=== PATIENT | female | born 1985 | race Caucasian/White ===

== ENCOUNTER 2017-03-21 03:10 | Inpatient (IN) | payer MEDICAID, OTHER ==
[~2017-03-21] VITALS: Ht 154.9 cm; Wt 108.0 kg
[2017-03-21] MEDS ORDERED: CARBOPROST TROMETHAMINE 250 MCG/ML AMPUL IM PRN (03:15)
[2017-03-21] MEDS ORDERED: METHYLERGONOVINE MALEATE 0.2 MG/ML IM PRN (03:15)
[2017-03-21] MEDS ORDERED: DEXT 5%/LR + PITOCIN 20UNITS/L 1,000 ML IV SCH ×2 (03:15→09:37)
[2017-03-21] MEDS ORDERED: MISOPROSTOL 100MCG TABLET VG SCH (03:15)
[2017-03-21] MEDS: LACTATED RINGERS 1,000 ML IV SCH ×2 (03:38→04:32)
[2017-03-21] MEDS: TERBUTALINE SULFATE 1MG/ML VIAL SUBCUT PRN ×3 (03:39→05:31)
[2017-03-21 03:56] LABS: BASOPHILS % 0.5 % (0.0-2.0); EOSINOPHILS % 0.6 % (0.0-5.0); HEMATOCRIT. 37.4 % (36.0-48.0); HEMOGLOBIN. 12.4 g/dL (12.0-16.0); LYMPHOCYTES % 28.4 % (20.0-50.0); MEAN CORPUSCULAR VOLUME 78.8 fL (81.0-99.0); MEAN PLATELET VOLUME 7.8 fl (7.4-10.4); MONOCYTES % 5.8 % (2.0-8.0); NEUTROPHILS % 64.7 % (40.0-76.0); PLATELET 259 x1000/uL (130-400); RED BLOOD CELL COUNT 4.75 mill/uL (4.2-5.4); RED CELL DISTRIBUTION WIDTH 14.8 % (11.6-14.6)
[2017-03-21 04:05] LABS: PARTIAL THROMBOPLASTIN TIME 28.7 sec (24.0-34.0); PROTHROMBIN TIME 10.4 sec
[2017-03-21] MEDS: BUTORPHANOL TARTRATE 2 MG/ML VIAL IV PRN ×2 (06:18→11:40)
[2017-03-21] MEDS ORDERED: OXYTOCIN 10 UNITS/ML 1ML ONE (07:05)
[2017-03-21] MEDS ORDERED: MORPHINE SULFATE/PF 1MG/ML 10ML AMP ONE (07:05)
[2017-03-21] MEDS ORDERED: MIDAZOLAM HCL 2 MG/2 ML VIAL ONE ×2 (07:05→09:08)
[2017-03-21] MEDS ORDERED: EPHEDRINE SULFATE 50MG/ML VIAL ONE (07:06)
[2017-03-21] MEDS ORDERED: SODIUM CHLORIDE 0.9% 10ML VIAL ONE ×2 (07:06→08:23)
[2017-03-21] MEDS ORDERED: PHENYLEPHRINE HCL 10 MG/ML 1ML (IV VIAL) IV ONE (07:06)
[2017-03-21] MEDS ORDERED: CLINDAMYCIN PHOSPHATE 900MG/6ML VIAL ONE (07:06)
[2017-03-21] MEDS ORDERED: DEXAMETHASONE 4MG/ML 1ML VIAL ONE (07:06)
[2017-03-21] MEDS ORDERED: ONDANSETRON HCL 4MG/2ML VIAL ONE (07:06)
[2017-03-21 07:33] LABS: CLARITY URINE CLOUDY (CLEAR); COLOR URINE YELLOW (YELLOW); GLUCOSE URINE NEGATIVE (NEGATIVE); KETONES URINE NEGATIVE (NEGATIVE); LEUKOCYTE ESTERASE URINE NEGATIVE (NEGATIVE); NITRITE URINE NEGATIVE (NEGATIVE); OCCULT BLOOD URINE 3+ (NEGATIVE); PH URINE 6.5 (4.5-8.0); PROTEIN URINE TRACE (NEGATIVE); SPECIFIC GRAVITY URINE 1.024 (1.005-1.030); UROBILINOGEN URINE 0.2 E.U./dL (0.2-1.0)
[2017-03-21 07:53] LABS: *AMPHETAMINES SCREEN URINE NEGATIVE (NEGATIVE); *BARBITURATES SCREEN URINE NEGATIVE (NEGATIVE); *BENZODIAZEPINES SCREEN URINE NEGATIVE (NEGATIVE); *COCAINE SCREEN URINE NEGATIVE (NEGATIVE); CANNABINOID URINE SCREEN NEGATIVE (NEGATIVE); METHADONE URINE SCREEN NEGATIVE (NEGATIVE); OPIATES URINE SCREEN NEGATIVE (NEGATIVE); PHENCYCLIDINE URINE SCREEN NEGATIVE (NEGATIVE)
[2017-03-21] MEDS ORDERED: GENTAMICIN 120MG PREMIX 100 ML IV SCH (08:00)
[2017-03-21] MEDS ORDERED: IBUPROFEN 400MG TABLET PO PRN (09:45)
[2017-03-21] MEDS ORDERED: RHO(D) IMMUNE GLOBULIN 300 MCG/SYR IM PRN (09:45)
[2017-03-21] MEDS ORDERED: ONDANSETRON HCL 4MG/2ML VIAL IV PRN ×2 (09:45→10:15)
[2017-03-21] MEDS ORDERED: LANOLIN OINT 0.25 GM TUBE TOP PRN (09:45)
[2017-03-21] MEDS ORDERED: DIPHENHYDRAMINE 25MG CAPSULE PO PRN (09:45)
[2017-03-21] MEDS ORDERED: TETANUS, DIPHTHERIA, PERTUSSIS VAC/PF 0.5ML (>7YR OLD) IM ONE (09:45)
[2017-03-21] MEDS ORDERED: HYDROCODONE/ACETAMINOPHEN 5/325MG TABLET PO PRN (09:45)
[2017-03-21] MEDS ORDERED: BISACODYL 10MG SUPP PR PRN (09:45)
[2017-03-21] MEDS ORDERED: DIPHENHYDRAMINE 50MG/ML VIAL IV PRN (10:15)
[2017-03-21] MEDS ORDERED: NALOXONE HCL 0.4 MG/ML 1ML VIAL IV PRN (10:15)
[2017-03-21] MEDS: KETOROLAC 30MG/ML VIAL IV SCH ×3 (10:32→23:01)
[2017-03-21] MEDS ORDERED: FENTANYL CITRATE/PF 50MCG/ML 2ML VIAL IV PRN (11:00)
[2017-03-21 12:30] VITALS: BP 127/95
[2017-03-21 13:00] VITALS: BP 127/71
[2017-03-21] MEDS ORDERED: LACTATED RINGERS 1,000 ML IV SCH (13:30)
[2017-03-21 13:31] LABS: HEPATITIS B SURFACE ANTIGEN NEGATIVE; RUBELLA IGG 110.8 IU/mL (4.99-10)
[2017-03-21] MEDS ORDERED: PREN-88 PO (15:14)
[2017-03-21 15:43] LABS: HEMATOCRIT. 34.2 % (36.0-48.0); HEMOGLOBIN. 11.3 g/dL (12.0-16.0); MEAN CORPUSCULAR HEMOGLOBIN 25.9 pg (28.0-32.0); MEAN CORPUSCULAR VOLUME 78.5 fL (81.0-99.0); MEAN PLATELET VOLUME 7.8 fl (7.4-10.4); PLATELET 232 x1000/uL (130-400); RED BLOOD CELL COUNT 4.36 mill/uL (4.2-5.4); RED CELL DISTRIBUTION WIDTH 14.8 % (11.6-14.6)
[2017-03-21 19:45] LABS: PLATELET ESTIMATE NORMAL
[2017-03-21 20:00] VITALS: BP 112/70
[2017-03-21] MEDS: DOCUSATE SODIUM 100MG CAPSULE PO SCH (21:00)
[2017-03-22] VITALS: BP 96/58
[2017-03-22 04:00] VITALS: BP 101/66
[2017-03-22] MEDS ORDERED: KETOROLAC 30MG/ML VIAL IV SCH (06:45)
[2017-03-22 07:31] VITALS: BP 97/69
[2017-03-22 07:31] LABS: BASOPHILS % 0.4 % (0.0-2.0); EOSINOPHILS % 0.2 % (0.0-5.0); HEMATOCRIT. 31.6 % (36.0-48.0); HEMOGLOBIN. 10.5 g/dL (12.0-16.0); LYMPHOCYTES % 26.1 % (20.0-50.0); MEAN CORPUSCULAR HEMOGLOBIN 26.2 pg (28.0-32.0); MEAN CORPUSCULAR VOLUME 78.6 fL (81.0-99.0); MEAN PLATELET VOLUME 7.5 fl (7.4-10.4); MONOCYTES % 8.2 % (2.0-8.0); NEUTROPHILS % 65.1 % (40.0-76.0); PLATELET 222 x1000/uL (130-400); RED BLOOD CELL COUNT 4.02 mill/uL (4.2-5.4); RED CELL DISTRIBUTION WIDTH 14.6 % (11.6-14.6)
[2017-03-22] MEDS: MAGNESIUM/ALUMINUM HYDROXIDE/SIMETHICONE 30ML UDC PO SCH ×4 (08:16→22:00)
[2017-03-22] MEDS: PRENATAL VIT/FE FUMARATE/FA TABLET PO SCH (08:16)
[2017-03-22] MEDS: SIMETHICONE 80MG TABLET CHEW PO SCH ×3 (08:16→17:55)
[2017-03-22] MEDS: IBUPROFEN 400MG TABLET PO PRN ×2 (10:57→17:57)
[2017-03-22] MEDS: FERROUS SULFATE 325MG TABLET PO SCH ×2 (12:53→17:55)
[2017-03-22] MEDS: HYDROCODONE/ACETAMINOPHEN 5/325MG TABLET PO PRN ×2 (15:09→22:28)
[2017-03-22 16:02] VITALS: BP 98/59
[2017-03-22 20:00] VITALS: BP 116/79
[2017-03-22] MEDS: DOCUSATE SODIUM 100MG CAPSULE PO SCH (20:53)
[2017-03-23] VITALS: BP 110/75
[2017-03-23 04:00] VITALS: BP 115/70
[2017-03-23] MEDS: IBUPROFEN 400MG TABLET PO PRN ×3 (05:31→20:04)
[2017-03-23 07:58] VITALS: BP 102/71
[2017-03-23] MEDS: MAGNESIUM/ALUMINUM HYDROXIDE/SIMETHICONE 30ML UDC PO SCH ×3 (08:26→21:37)
[2017-03-23] MEDS: SIMETHICONE 80MG TABLET CHEW PO SCH ×4 (08:27→21:37)
[2017-03-23] MEDS: PRENATAL VIT/FE FUMARATE/FA TABLET PO SCH (08:27)
[2017-03-23] MEDS: FERROUS SULFATE 325MG TABLET PO SCH ×3 (08:27→17:56)
[2017-03-23 15:57] VITALS: BP 110/80
[2017-03-23 20:00] VITALS: BP 109/76
[2017-03-23] MEDS: DOCUSATE SODIUM 100MG CAPSULE PO SCH (20:04)
[2017-03-24] MEDS: IBUPROFEN 400MG TABLET PO PRN ×2 (02:26→08:15)
[2017-03-24 02:30] VITALS: BP 124/78
[2017-03-24 08:02] VITALS: BP 125/88
[2017-03-24] MEDS: MAGNESIUM/ALUMINUM HYDROXIDE/SIMETHICONE 30ML UDC PO SCH (08:14)
[2017-03-24 08:15] VITALS: BP 125/88
[2017-03-24] MEDS: SIMETHICONE 80MG TABLET CHEW PO SCH (08:15)
[2017-03-24] MEDS: PRENATAL VIT/FE FUMARATE/FA TABLET PO SCH (08:15)
[2017-03-24] MEDS: FERROUS SULFATE 325MG TABLET PO SCH (08:15)
== END 2017-03-24 12:34 | disposition home or self-care (01) | DRG 540 ==
LOC: L&D 03:10 → OBSVTOIN 09:06 → 7EST PP/OB 13:29
PROVIDERS: ADMIT Specialist; ATTEND Specialist
PROC: 10D00Z1 Extraction of Products of Conception, Low, Open Approach (ICD-10-PCS; principal; 2017-03-21 09:58)
PROC: 30233S1 Transfusion of Nonautologous Globulin into Peripheral Vein, Percutaneous Approach (ICD-10-PCS; 2017-03-22)
DX: O99.214 Obesity complicating childbirth (principal); Z68.42 Body mass index [BMI] 45.0-49.9, adult; O99.344 Other mental disorders complicating childbirth; F32.9 Major depressive disorder, single episode, unspecified; O34.211 Maternal care for low transverse scar from previous cesarean delivery; Z88.0 Allergy status to penicillin; Z37.0 Single live birth; Z3A.39 39 weeks gestation of pregnancy; Z82.49 Family history of ischemic heart disease and other diseases of the circulatory system; Z90.49 Acquired absence of other specified parts of digestive tract; Z23 Encounter for immunization
CPT/HCPCS: 36415; 80305; 81001; 85025; 85610; 85730; 86592; 86703; 86762; 86850; 86870; 86886; 86900; 86920; 87340; 88307; 90384; 90715; A4216; G0378; J0171; J0595; J1100; J1200; J1580; J1885; J2250; J2274; J2370; J2405; J2590; J3105; J3490; J7120; A4315

== ENCOUNTER 2019-08-17 04:27 | Emergency (ER) | payer OTHER ==
[~2019-08-17] VITALS: Ht 154.9 cm; Wt 114.0 kg
[2019-08-17] MEDS ORDERED: SODIUM CHLORIDE 0.9% 1,000 ML IV ONE (06:17)
[2019-08-17] MEDS ORDERED: KETOROLAC 30MG/ML VIAL IV STA (06:17)
[2019-08-17] MEDS ORDERED: ACETAMINOPHEN 325MG TABLET PO STA (06:17)
[2019-08-17] MEDS ORDERED: TRAMADOL 50MG TABLET PO ONE (08:00)
[2019-08-17 08:12] LABS: CLARITY URINE CLEAR (CLEAR); COLOR URINE YELLOW (YELLOW); KETONES URINE NEGATIVE (NEGATIVE); LEUKOCYTE ESTERASE URINE NEGATIVE (NEGATIVE); NITRITE URINE NEGATIVE (NEGATIVE); OCCULT BLOOD URINE 2+ (NEGATIVE); PROTEIN URINE NEGATIVE (NEGATIVE); SPECIFIC GRAVITY URINE 1.018 (1.005-1.030); UROBILINOGEN URINE 0.2 E.U./dL (0.2-1.0)
[2019-08-17 09:33] VITALS: BP 124/72
== END 2019-08-17 09:47 | disposition home or self-care (01) ==
LOC: ER 04:27
DX: B34.9 Viral infection, unspecified (principal); N20.0 Calculus of kidney; M79.10 Myalgia, unspecified site; R05 Cough; R51 Headache; F17.200 Nicotine dependence, unspecified, uncomplicated; Z90.49 Acquired absence of other specified parts of digestive tract; Z98.890 Other specified postprocedural states; Z88.0 Allergy status to penicillin
CPT/HCPCS: 71045; 76700; 81003; 87804; 96374; 99284; J1885; J7030

== ENCOUNTER 2024-08-26 06:47 | Emergency (ER) | payer MEDICAID, OTHER ==
[~2024-08-26] VITALS: Ht 162.6 cm; Wt 114.0 kg
[~2024-08-26 06:47] MED LIST: ALBUTEROL; NITR-87 MT
[2024-08-26 06:59] VITALS: O2SAT 99
[2024-08-26 08:54] VITALS: BP 124/59; PULSE 86; RESP 18; TEMP 36.78072; O2SAT 99
== END 2024-08-26 08:50 | disposition home or self-care (01) ==
LOC: ER 07:02
DX: M25.561 Pain in right knee (principal); J45.909 Unspecified asthma, uncomplicated; Z88.0 Allergy status to penicillin; Z90.49 Acquired absence of other specified parts of digestive tract
CPT/HCPCS: 73562; 99283; Z7610